=== PATIENT | female | born 1985 | race African-American/Black ===

== ENCOUNTER 2016-10-27 19:46 | Emergency (ER) | payer OTHER ==
[~2016-10-27] VITALS: Ht 162.6 cm; Wt 80.0 kg
[2016-10-27 19:47] VITALS: BP 196/102; PULSE 112; RESP 24; TEMP 98.7; O2SAT 98
--- NOTE | 2016-10-27 20:39 | PD ---
Physical Exam Date Seen by Provider: Oct 27, 2016 Time Seen by Provider: 20:37 Data Data Last Documented VS Vital Signs Date Time Temp Pulse Resp B/P Pulse Ox O2 Delivery O2 Flow Rate FiO2 10/27/16 19:47 98.7 112 24 196/102 98 Room Air [facility] Supervised Visit with EWA: No Narrative Course 31 YO F with complaint of 3 hour history of "panic attack," SOB. Vitals reviewed. Awaiting bed placement. Elana Vera Oct 27, 2016 20:39
[2016-10-27] MEDS ORDERED: METF500T PO (21:05)
[2016-10-27] MEDS ORDERED: birth control (21:05)
[2016-10-27] MEDS ORDERED: LORazepam 2 MG/ML VIAL IV ONE (21:15)
[2016-10-27 21:35] LABS: AUTOMATED NEUTROPHIL # 4.4 TH/MM3 (1.8-7.7); BASOPHIL % 0.7 % (0.0-2.0); EOSINOPHIL % 0.4 % (0.0-4.0); HEMATOCRIT 39.6 % (35.0-46.0); HEMO FLAGS DIFF FINAL; LYMPH % 20.8 % (9.0-44.0); LYMPHOCYTE # 1.3 TH/MM3 (1.0-4.8); MEAN CELL VOLUME 75.4 FL (80.0-100.0); MEAN CORPUSCULAR HEMOGLOBIN 24.3 PG (27.0-34.0); MEAN CORPUSCULAR HGB CONC 32.2 % (32.0-36.0); MONO % 8.1 % (0.0-8.0); PLATELET COUNT 341 TH/MM3 (150-450); RED BLOOD COUNT 5.25 MIL/MM3 (4.00-5.30); RED CELL DISTRIBUTION WIDTH 15.2 % (11.6-17.2); WHITE BLOOD COUNT 6.3 TH/MM3 (4.0-11.0)
[2016-10-27 21:47] LABS: ANION GAP 10 MEQ/L (5-15); AST (GOT) 70 U/L (15-37); BICARBONATE 25.2 MEQ/L (21.0-32.0); BLOOD UREA NITROGEN 6 MG/DL (7-18); CHLORIDE 105 MEQ/L (98-107); GLOMERULAR FILTRATION RATE 80 ML/MIN (>89); POTASSIUM 3.5 MEQ/L (3.5-5.1); SODIUM (NA) 140 MEQ/L (136-145)
[2016-10-27 21:48] LABS: ALT (GPT) 216 U/L (10-53)
[2016-10-27 21:55] LABS: ALKALINE PHOSPHATASE 60 U/L (45-117); TOTAL BILIRUBIN ADULT 0.5 MG/DL (0.2-1.0)
--- NOTE | 2016-10-27 21:58 | PD ---
HPI Chief Complaint: Anxiety Time Seen by Provider: 21:53 Travel History International Travel<30 days: No Contact w/Intl Traveler<30days: No Traveled to known affect area: No History of Present Illness HPI 31-year-old female that presents to the ED for evaluation of anxiety. Patient has a history of anxiety and states that she's had a panic attack one year ago. Per patient this feels similar. Per patient she is very anxious. Per patient she feels like there is pressure in her chest as well as shortness of breath. She denies any numbness, tilling, weakness. She states that she's had this for about 3-4 hours. She denies any abdominal pain. Nausea or vomiting. No history of heart disease. Allergies to aspirin. She states that she's been feeling more stressed. She doesn't take anything for anxiety. History of depression in the family been on herself. No suicidal or homicidal ideation per patient. No history of injury or fall. Denies any drugs or alcohol recently. Hasn't taken anything for this. Per patient she came here to get evaluated because he is not getting better. Patient comes here with family members. PFS Past Medical History Anxiety: Yes ?: Not Past Surgical History Cholecystectomy: Yes Social History Alcohol Use: Yes Tobacco Use: No Substance Use: No Allergies-Medications (Allergen,Severity, Reaction): Coded Allergies: Aspirin (Verified Allergy, Severe, 10/27/16) Reported Meds & Prescriptions Reported Meds & Active Scripts Active Reported Metformin (Metformin HCl) 500 Mg Tab 500 Mg PO DAILY With a meal [ control] Review of Systems Except as stated in HPI: all other systems reviewed are Neg Physical Exam Narrative GENERAL: SKIN: Warm and dry. HEAD: Atraumatic. Normocephalic. EYES: Pupils equal and round. No scleral icterus. No injection or drainage. ENT: No nasal bleeding or discharge. Mucous membranes pink and moist. Tongue is midline. No uvula deviation. NECK: Trachea midline. No JVD. CARDIOVASCULAR: Regular rate and rhythm. No murmurs, S3, S4. RESPIRATORY: No accessory muscle use. Clear to auscultation. Breath sounds equal bilaterally. GASTROINTESTINAL: Abdomen soft, non-tender, nondistended. Hepatic and splenic margins not palpable. MUSCULOSKELETAL: Extremities without clubbing, cyanosis, or edema. No obvious deformities. Full range of motion of the upper and lower extremities bilaterally. 2+ pulses bilaterally. NEUROLOGICAL: Awake and alert. No obvious cranial nerve deficits. Motor grossly within normal limits. Five out of 5 muscle strength in the arms and legs. Normal speech. PSYCHIATRIC: Very anxious mood and affect; insight and judgment normal. Data Data Last Documented VS Vital Signs Date Time Temp Pulse Resp B/P Pulse Ox O2 Delivery O2 Flow Rate FiO2 10/27/16 19:47 98.7 112 24 196/102 98 Room Air Orders Complete Blood Count With Diff (10/27/16 21:10) Comprehensive Metabolic Panel (10/27/16 21:10) Thyroid Stimulating Hormone (10/27/16 21:10) Urinalysis - C+S If Indicated (10/27/16 21:10) Ed Urine Pregnancytest Poc (10/27/16 21:10) Lorazepam Inj (Ativan Inj) (10/27/16 21:15) Electrocardiogram (10/27/16 ) Troponin I (10/27/16 21:15) Labs Laboratory Tests Test 10/27/16 21:15 White Blood Count 6.3 TH/MM3 Red Blood Count 5.25 MIL/MM3 Hemoglobin 12.7 GM/DL Hematocrit 39.6 % Mean Corpuscular Volume 75.4 FL Mean Corpuscular Hemoglobin 24.3 PG Mean Corpuscular Hemoglobin 32.2 % Concent Red Cell Distribution Width 15.2 % Platelet Count 341 TH/MM3 Mean Platelet Volume 8.7 FL Neutrophils (%) (Auto) 70.0 % Lymphocytes (%) (Auto) 20.8 % Monocytes (%) (Auto) 8.1 % Eosinophils (%) (Auto) 0.4 % Basophils (%) (Auto) 0.7 % Neutrophils # (Auto) 4.4 TH/MM3 Lymphocytes # (Auto) 1.3 TH/MM3 Monocytes # (Auto) 0.5 TH/MM3 Eosinophils # (Auto) 0.0 TH/MM3 Basophils # (Auto) 0.0 TH/MM3 CBC Comment DIFF FINAL Differential Comment Sodium Level 140 MEQ/L Potassium Level 3.5 MEQ/L Chloride Level 105 MEQ/L Carbon Dioxide Level 25.2 MEQ/L Anion Gap 10 MEQ/L Blood Urea Nitrogen 6 MG/DL Creatinine 0.82 MG/DL Estimat Glomerular Filtration 80 ML/MIN Rate Random Glucose 95 MG/DL Calcium Level 8.9 MG/DL Total Bilirubin 0.5 MG/DL Aspartate Amino Transf 70 U/L (AST/SGOT) Alanine Aminotransferase 216 U/L (ALT/SGPT) Alkaline Phosphatase 60 U/L Troponin I LESS THAN 0.02 NG/ML Total Protein 8.3 GM/DL Albumin 3.5 GM/DL Thyroid Stimulating Hormone 0.571 uIU/ML 3rd Gen [facility] Medical Decision Making Medical Screen Exam Complete: Yes Emergency Medical Condition: Yes Medical Record Reviewed: Yes Interpretation(s) CBC & BMP Diagram 10/27/16 21:15 TSH within normal limits. LFTs slightly elevated. Otherwise unremarkable. EKG shows sinus rhythm with no sign of acute ischemia or arrhythmia. Of tachycardia. Read by me and attending. Troponin and CK-MB negative. Differential Diagnosis Anxiety versus panic attack versus depression versus acute on chronic versus chest discomfort versus less likely ACS Narrative Course 31-year-old female that presents to the ED for evaluation of anxiety. Patient was properly examined and was found to have signs and symptoms concerning for acute panic attack. Labs were ordered. EKG and labs were essentially unremarkable. Patient was reassured. Patient was given Ativan IV with relief. This appears to be panic attack. This time I recommend trial of Vistaril prescription. Close follow with PCP. See ED for worsening symptoms. Diagnosis Primary Impression: Panic attack Patient Instructions: General Instructions Additional Instructions: Take medication as prescribed. Follow with PCP. See ED worsening symptoms. Med/Other Pt SpecificInfo: Prescription(s) given Scripts Hydroxyzine Pamoate (Vistaril)50 Mg Cap50 Mg PO QID PRN (ANXIETY) #20 CAP Ref 0 Prov:Alfreda Beard MD 10/27/16 Disposition: 01 DISCHARGE HOME Condition: Stable Steven Marquez Oct 27, 2016 21:58
[2016-10-27] MEDS ORDERED: VIST50CA PO (22:11)
[2016-10-27] MEDS ORDERED: ACETAMINOPHEN 325 MG TAB PO ONE (22:30)
--- NOTE | 2016-10-28 10:59 | EKG ---
Date Performed: 10/27/2016 Time Performed: 21:49:04 PTAGE: 31 years EKG: Sinus rhythm NORMAL ECG NO PREVIOUS TRACING DOCTOR: Merrick Beard Interpretating Date/Time 10/28/2016 10:58:06
== END 2016-10-27 22:39 | disposition home or self-care (01) ==
LOC: NEPE 19:46
DX: F41.0 Panic disorder [episodic paroxysmal anxiety] (principal); R06.02 Shortness of breath
CPT/HCPCS: 80053; 84443; 84484; 84703; 85025; 93005; 96374; 99284; J2060

== ENCOUNTER 2017-04-15 00:08 | Emergency (ER) | payer OTHER ==
[~2017-04-15 00:08] MED LIST: METF500T PO; VIST50CA PO; birth control
[2017-04-15 00:12] VITALS: BP 163/100; PULSE 85; RESP 30; TEMP 98.5; O2SAT 100
--- NOTE | 2017-04-15 00:29 | PD ---
HPI Chief Complaint: Anxiety Time Seen by Provider: 00:20 Travel History International Travel<30 days: No Contact w/Intl Traveler<30days: No Traveled to known affect area: No History of Present Illness HPI 31-year-old black female with a history of anxiety presents to emergency department reporting that she's having anxiety attacks. She states that in the past hour or so before coming in she felt extremely short of breath, ringing her hands and feet and face. She had some chest tightness. She states that this is a similar symptom she has associated with her anxiety. She states that she has missed several of her appointments with her psychologist. She has not been seen in the last month. She is not on any medications currently. She denies any recent illness. No exacerbating or triggers that she can think of. She denies any drugs. She does drink alcohol on occasion. Denies . [facility] Past Medical History Anxiety: Yes LMP: "SOME TIME LAST MONTH" Past Surgical History Cholecystectomy: Yes Social History Alcohol Use: Yes Tobacco Use: No Substance Use: No Allergies-Medications (Allergen,Severity, Reaction): Coded Allergies: aspirin (Unverified Allergy, Severe, 04/15/17) Reported Meds & Prescriptions Reported Meds & Active Scripts Active No Active Prescriptions or Reported Medications Review of Systems Except as stated in HPI: all other systems reviewed are Neg Physical Exam Narrative GENERAL: Well-nourished, well-developed patient. SKIN: Warm and dry. HEAD: Normocephalic and atraumatic. EYES: No scleral icterus. No injection or drainage. ENT: No nasal drainage noted. Mucous membranes pink. Airway patent. NECK: Supple, trachea midline. Moves head freely without obvious discomfort. CARDIOVASCULAR: Regular rate and rhythm without murmurs, gallops, or rubs. RESPIRATORY: Breath sounds equal bilaterally. No accessory muscle use. GASTROINTESTINAL: Abdomen soft, non-tender, nondistended. EXTREMITIES: No cyanosis or edema. BACK: Nontender without obvious deformity. No CVA tenderness. NEURO: Patient is alert and oriented. no sensorimotor deficits. Nonfocal. Normal speech. PSYCH: No delusions. No auditory or visual hallucinations. Data Data Last Documented VS Vital Signs Date Time Temp Pulse Resp B/P (MAP) Pulse Ox O2 Delivery O2 Flow Rate FiO2 04/15/17 00:12 98.5 85 30 163/100 (121) 100 MDM Medical Decision Making Medical Screen Exam Complete: Yes Emergency Medical Condition: Yes Medical Record Reviewed: Yes Differential Diagnosis MDM: Low Differential diagnoses: Anxiety, depression, mood disorder Narrative Course Patient's given Ativan 1 mg by mouth. She is discharged home with prescription for Vistaril. Diagnosis Primary Impression: Panic attack Patient Instructions: General Instructions Additional Instructions: Rest. Medications as directed. Follow-up with your psychiatrist. Call their office in the morning. Med/Other Pt SpecificInfo: Prescription(s) given Scripts No Active Prescriptions or Reported Meds Disposition: 01 DISCHARGE HOME Condition: Miguelito Laura Apr 15, 2017 00:29
[2017-04-15] MEDS ORDERED: LORazepam 1 MG TAB PO ONE (00:30)
[2017-04-15] MEDS ORDERED: VIST50CA PO (00:30)
== END 2017-04-15 00:52 | disposition home or self-care (01) ==
LOC: NEPD 00:08
DX: F41.0 Panic disorder [episodic paroxysmal anxiety] (principal); F41.9 Anxiety disorder, unspecified; R07.89 Other chest pain; Z88.6 Allergy status to analgesic agent
CPT/HCPCS: 99283